=== PATIENT | male | born 2000 ===

== ENCOUNTER 2022-01-06 19:43 | Emergency (ER) | payer MEDICAID ==
--- NOTE | 2022-01-06 20:34 | Emergency Department Report ---
ED General Adult HPI - General Chief complaint: Psych Stated complaint: I just got angry Time Seen by Provider: 01/06/22 20:19 Source: patient, police Mode of arrival: Ambulatory Limitations: No Limitations - History of Present Illness Initial comments: Patient is a pleasant cooperative 21-year-old gentleman, with a history of depression and anxiety, off Seroquel for 2 to 3 weeks, I have Depakote for 1 week (takes 250 mg twice daily), who is from [facility], who has a bus ticket to go back to [place] tomorrow, who presents to the ER today with a complaint of "they just brought me here." Patient reports that he was living with family members, and got kicked out of the house. He was then staying in a hotel with family, and he reports that he purchased a bus ticket to go back to [place] tomorrow. He reports that he got into a verbal disagreement with friends/family, got a little bit agitated, and for unclear reasons, 911 was a ctivated. For unclear reasons, the police brought the patient here to the emergency room. The patient denies physical pain. The patient denies homicidality, suicidality and overdose. He denies all complaints at this time. He states he is going to go back to [place] tomorrow -: Sudden Improves with: none Worsens with: other (Exposure to stressful situation) Associated Symptoms: denies other symptoms, other (Anxiety) - Related Data Previous Rx's Medication Instructions Recorded Last Taken Type Divalproex Dr [DepaKOTE DR] 250 mg PO BID #60 tablet 01/06/22 Unknown Rx Allergies Allergy/AdvReac Type Severity Reaction Status Date / Time No Known Allergies Allergy Unverified 01/06/22 20:02 ED Review of Systems ROS: Stated complaint: MH,BEHAVERAL ISSUES Other details as noted in HPI Comment: Unobtainable due to pts medical conditions Psychiatric: denies: auditory hallucinations, visual hallucinations, homicidal thoughts, suicidal thoughts ED Past Medical Hx - Past Medical History Previous Medical History?: Yes Hx Psychiatric Treatment: Yes (depression, mood disorder) - Surgical History Past Surgical History?: No - Medications Home Medications: Home Medications Medication Instructions Recorded Confirmed Last Taken Type Divalproex Dr [DepaKOTE DR] 250 mg PO BID #60 tablet 01/06/22 Unknown Rx ED Physical Exam - General Limitations: No Limitations General appearance: alert, in no apparent distress - Head Head exam: Present: atraumatic, normocephalic - Eye Eye exam: Present: normal appearance, EOMI. Absent: nystagmus - ENT ENT exam: Present: normal exam, normal orophraynx, mucous membranes moist, normal external ear exam - Neck Neck exam: Present: normal inspection, full ROM. Absent: tenderness, meningismus - Respiratory Respiratory exam: Present: normal lung sounds bilaterally. Absent: respiratory distress, wheezes, rales, rhonchi, stridor, decreased breath sounds - Cardiovascular Cardiovascular Exam: Present: regular rate, normal rhythm, normal heart sounds. Absent: bradycardia, tachycardia, irregular rhythm, systolic murmur, diastolic murmur, rubs, gallop - GI/Abdominal GI/Abdominal exam: Present: soft. Absent: distended, tenderness, guarding, rebound, rigid, pulsatile mass - Rectal Rectal exam: Present: deferred - Extremities Exam Extremities exam: Present: normal inspection, full ROM, other (2+ pulses noted in the bilateral upper and lower extremities. There is no palpable cord. negative Homans sign. Muscular compartments are soft. The pelvis is stable.). Absent: pedal edema, calf tenderness - Back Exam Back exam: Present: normal inspection. Absent: tenderness, CVA tenderness (R), CVA tenderness (L), paraspinal tenderness, vertebral tenderness - Neurological Exam Neurological exam: Present: alert, oriented X3, normal gait, other (No facial droop. Tongue midline. Extraocular movements intact bilaterally. Facial sensation intact to light touch in V1, V2, V3 distribution bilaterally. 5 and a 5 strength in 4 extremities. Sensation intact to light touch in 4 extremities.). Absent: motor sensory deficit - Psychiatric Psychiatric exam: Present: anxious. Absent: homicidal ideation, suicidal ideation - Skin Skin exam: Present: warm, dry, intact, normal color. Absent: rash ED Course Vital Signs 01/06/22 20:41 Temperature 98.2 F Pulse Rate 107 H Respiratory 18 Rate Blood Pressure 150/99 [Right] O2 Sat by Pulse 97 Oximetry ED Medical Decision Making - Lab Data Vital Signs 01/06/22 20:41 Temperature 98.2 F Pulse Rate 107 H Respiratory 18 Rate Blood Pressure 150/99 [Right] O2 Sat by Pulse 97 Oximetry - Medical Decision Making Differential diagnosis, include but not limited to: Encounter for medical screening examination, encounter for behavioral health screening examination, Depakote acid refill Assessment and plan: 21-year-old gentleman, who is currently afebrile, with reassuring vital signs, resolved tachycardia on my examination, who is clinically sober, with a GCS of 15, who has no acute medical complaints or concerns at this time, and he does not meet criteria for 1013 hold or involuntary confinement. Patient may follow-up with an outpatient primary care doctor or psychiatrist for refill on Seroquel. I will refill the patient's valproic acid. He is also given a list of outpatient homeless shelters and resources. Return precautions are reviewed. All questions answered. May follow-up with an outpatient primary care doctor for incidental elevated blood pressure. Please reference the [employer] clinical policy on asymptomatic elevated blood pressure/hypertension Critical care attestation.: If time is entered above; I have spent that time in minutes in the direct care of this critically ill patient, excluding procedure time. ED Disposition Clinical Impression: Encounter for behavioral health screening, Encounter for medical screening examination, Medication refill Disposition: 01 HOME / SELF CARE / HOMELESS Is pt being admited?: No Does the pt Need Aspirin: No Condition: Good Additional Instructions: Please follow-up with outpatient resources that have been provided to the patient. Avoid consumption of tobacco, alcohol, and smoke products. Follow-up with your primary care doctor within the next month. Follow-up with a mental health provider within the next week. Specifically follow-up with your mental health provider to have a refill on Seroquel. Please return to the emergency room right away with new pain, worsened pain, migration of pain, projectile vomiting, change in mental status, confusion, inability tolerate liquid feeds, new, worsened or different symptoms not present on the initial emergency room evaluation Referrals: SEVERO VALLES MD [Primary Care Provider] - 3-5 Days [facility] Health Depart [Outside] - 3-5 Days [facility] Mental Health [Outside] - 3-5 Days
[2022-01-06 20:41] VITALS: BP 150/99
== END 2022-01-06 22:27 | disposition home or self-care (01) ==
LOC: ED 19:43
DX: Z13.30 Encounter for screening examination for mental health and behavioral disorders, unspecified (principal); Z00.00 Encounter for general adult medical examination without abnormal findings; Z76.0 Encounter for issue of repeat prescription; F32.A Depression, unspecified
CPT/HCPCS: 99282